=== PATIENT | male | born 1975 | race Caucasian/White ===

== ENCOUNTER 2018-06-29 21:15 | Emergency (ER) | payer BC, OTHER ==
[2018-06-29 21:15] VITALS: BMI 31.6
[2018-06-29 21:33] VITALS: O2SAT 99
[2018-06-29] MEDS ORDERED: Lidocaine 1% (10 ml) Inj INFIL STA (21:55)
[2018-06-29] MEDS ORDERED: Acetaminophen-Codeine 300/30 mg Tab PO STA (21:55)
[2018-06-29] MEDS ORDERED: Lidocaine 1% Inj (20ml) ONE (22:05)
[2018-06-29] MEDS ORDERED: Acetaminophen-Codeine 300/30 mg Tab ONE (22:06)
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
[2018-06-30 00:51] VITALS: BP 118/63; PULSE 84; RESP 18; TEMP 99
--- NOTE | 2018-06-30 16:54 | RAD ---
Date of service: 06/29/2018 PROCEDURE: Radiographs of the Chest and Left Ribs. HISTORY: pain COMPARISON: None available. TECHNIQUE: Frontal radiograph of the chest and multiple oblique radiographs of the left ribs were obtained. FINDINGS: LEFT RIBS: No fracture or focal lesion visualized. LUNGS: Clear. PLEURA: No pneumothorax or pleural fluid. CARDIOVASCULAR: Normal cardiac size. No pulmonary vascular congestion. No aortic atherosclerotic calcification present OTHER FINDINGS: None. IMPRESSION: Unremarkable radiographs of the chest and left ribs. No left rib fracture. If symptoms persist or occult fracture suspected clinically consider follow-up CT scan of the chest.
== END 2018-06-30 00:45 | disposition home or self-care (01) ==
LOC: H.ER 21:15
DX: S01.511A Laceration without foreign body of lip, initial encounter (principal); S29.9XXA Unspecified injury of thorax, initial encounter; Y04.0XXA Assault by unarmed brawl or fight, initial encounter; Y92.89 Other specified places as the place of occurrence of the external cause